=== PATIENT | male | born 1960 | race Two or more races ===

== ENCOUNTER 2018-06-12 21:32 | Emergency (ER) | payer SELFPAY ==
[~2018-06-12] VITALS: Ht 165.1 cm; Wt 76.2 kg
[2018-06-12] MEDS ORDERED: LIPITOR40 MG ORAL (21:33)
[2018-06-12] MEDS ORDERED: [UNRECOGNIZED DRUG - REMARK] (21:33)
[2018-06-12] MEDS ORDERED: IBUPROFEN600 MG ORAL (21:44)
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
[2018-06-12 22:01] VITALS: BP 144/98
[2018-06-12 22:58] VITALS: BP 144/98
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
== END 2018-06-12 23:00 | disposition home or self-care (01) ==
LOC: EDBD 21:32 → EMR 21:57
DX: S09.90XA Unspecified injury of head, initial encounter (principal); W22.8XXA Striking against or struck by other objects, initial encounter; Y93.01 Activity, walking, marching and hiking; Y92.89 Other specified places as the place of occurrence of the external cause; E78.00 Pure hypercholesterolemia, unspecified
CPT/HCPCS: 70450; 99283